=== PATIENT | female | born 1980 ===

== ENCOUNTER 2020-07-09 10:58 | Day surgery (SDC) | payer BC ==
[~2020-07-09] VITALS: Ht 157.5 cm; Wt 53.8 kg
[~2020-07-09 10:58] MED LIST: ACIDOPHILUS1 EAC3; BIOTIN1 MG; CANASA1000 MG; LIALDA PO
[2020-07-09] MEDS ORDERED: FISH OIL 1,2001 EAC7 (11:10)
== END 2020-07-09 12:40 | disposition home or self-care (01) ==
LOC: ORSCSDS 10:58
PROVIDERS: Student in an Organized Health Care Education/Training Program
PROC: 0DBE8ZX Excision of Large Intestine, Via Natural or Artificial Opening Endoscopic, Diagnostic (ICD-10-PCS; principal; 2020-07-09 12:00)
PROC: 0DBP8ZX Excision of Rectum, Via Natural or Artificial Opening Endoscopic, Diagnostic (ICD-10-PCS; principal; 2020-07-09 12:00)
DX: Z87.19 Personal history of other diseases of the digestive system (principal); K62.89 Other specified diseases of anus and rectum
CPT/HCPCS: 88305; J2704; J7120

== ENCOUNTER → 2021-02-01 | Outpatient (CLI) | payer BC ==
[~2021-02-01] MED LIST changes: +FISH OIL 1,2001 EAC7
== END ==
LOC: LAB SHORT 12:00
DX: L08.9 Local infection of the skin and subcutaneous tissue, unspecified (principal)
CPT/HCPCS: 87070; 87205